=== PATIENT | female | born 1970 | race Caucasian/White ===

== ENCOUNTER 2022-04-07 09:55 | Day surgery (SDC) | payer BC ==
[~2022-04-07] VITALS: Ht 167.6 cm; Wt 106.8 kg
[~2022-04-07 09:55] MED LIST: EFFEXOR XR75 MG PO; IBU800 MG PO; PERCOCET 5-3251 EACH PO
--- NOTE | 2022-04-07 14:19 | NUR ---
04/07/22 1419 Sheets,Abby 1413 PT ARRIVED TO PACU ON 6L VIA MASK, PT ASLEEP AND RESP EVEN AND UNLABORED WITH ORAL AIRWAY IN PLACE. PT NONAROUSABLE.
--- NOTE | 2022-04-07 15:06 | NUR ---
1445: PATIENT BACK IN DAY SURGERY ROOM FROM PACU. RATES PAIN 2/10. ABDOMINAL SITES WITH STERI STRIPS WITH SCANT AMOUNT OF RED DRAINAGE. SCDs ON. IV SITE WNL. WOODALL CATH IN PLACE. VS CHECKED. ICE WATER PLACED AT BEDSIDE. AT BEDSIDE. CALL LIGHT WITHIN REACH. WARM BLANKET GIVEN. 1503: DR. VARNER IN TO SPEAK WITH AND PATIENT.
--- NOTE | 2022-04-07 15:13 | NUR ---
PATIENT AWAKENED FOR WOODALL CATH REMOVAL. PATIENT TOLERATED WOODALL REMOVAL WELL. NO NEEDS AT THIS TIME. AT BEDSIDE. CALL LIGHT WITHIN REACH.
--- NOTE | 2022-04-07 16:30 | NUR ---
1545: PATIENT TOLERATED WATER AND CRACKERS. VS CHECKED. NO OTHER NEEDS AT THIS TIME. AT BEDSIDE. CALL LIGHT WITHIN REACH. 1630: PATIENT ASSISTED OOB AND TO BATHROOM. GAIT STEADY.
[2022-04-07] MEDS ORDERED: HYDROCODON-ACE1 EA10 PO (16:38)
[2022-04-07] MEDS ORDERED: IBUPROFEN800 MG PO (16:38)
--- NOTE | 2022-04-07 16:48 | NUR ---
1635: VOIDED WITHOUT DIFFICULTY. GAIT STEADY BACK TO ROOM. PATIENT GETTING DRESSED.
--- NOTE | 2022-04-07 17:03 | NUR ---
PT GIVEN DISCHARGE INSTRUCTIONS. NO QUESTIONS FROM PT. PT MEETS CRITERIA FOR DISCHARGE. PT REPORTS NO PAIN. PT TRANSPORTED OUT OF DAY SURGERY VIA WHEELCHAIR TO PERSONAL AUTOMOBILE.
--- NOTE | 2022-04-11 05:22 | OR ---
[facility] [address] [place], [place] [address] Signed DATE OF OPERATION: 04/07/2022 SURGEON: Samir Dodson DO THERMAL ENGINEER: JESSICA Ayala DO PROCEDURES: 1. Laparoscopic right oophorectomy. 2. Pelvic washings. 3. Omental biopsy. 4. Peritoneal biopsy. 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 Peritoneal surface with bilateral brown blebs at each apex of cuff closure, each 2mm diameter. Scarring of peritoneal surface at region of left adnexa, consistent with surgical history. Otherwise smooth, normal appearing peritoneum. Right ovary appears normal without cystic lesions or masses visible. Bilateral ureters easily visualized in normal anatomic position. INDICATION: Pt is a 52 yo female with history of TLH-BS-LO, cysto for AUB and left ovarian mass. Electronically Signed By: SAMIR DODSON DO 04/11/22 0522 PATIENT NAME: CARLINE CHÁVEZ OPERATIVE REPORT DATE OF : 70 REPORT #: [id number] PHYSICIAN: SAMIR DODSON DO PCP: AVRIL WILSON PAC REPORT IS CONFIDENTIAL AND NOT TO BE RELEASED WITHOUT AUTHORIZATION [facility] [address] [place], [place] [address] Signed Left ovarian pathology was significant for borderline serous adenoma. Pt was referred to [facility] for further recommentations regarding management of borderline tumor and recommended completing surgery with right oophorectomy, and peritoneal and omental biopsies. Closer surveillance was recommended in the interim. Risks of surgical menopause were discussed. As pt followed-up, she noted her hot flashes were less bothersome postop compared with preop, and she felt ready to pursue definitive surgical management. Risks, benefits, and alternatives were discussed including my low-volume experience with peritoneal and omental biopsies and completion of procedure with [facility] was offered. Pt strongly desired to complete procedure locally, with me. Consents were signed and she elected to proceed. PROCEDURE: Pt was taken back to the operating room where she was given 2g Ancef IV and heparin subcutaneously. She was placed under general anesthesia and was positioned in dorsal lithotomy. She was prepped and draped in the normal sterile fashion. EEA sizer was placed vaginally in case manipulation of the cuff was necessary. Surgeon's gloves were changed and attention was turned to the abdomen. Local anesthetic was injected infraumbilically. Incision was made with the scalpel through prior scar and was carried down to the fascia with blunt and sharp dissection with metzenbaum scissors. Once fascia was incised, superior and inferior margins were each tagged with a stay suture of 0 vicryl. Peritoneum was entered bluntly and Cardona trochar was placed without difficulty. Abdomen was insufflated with CO2 gas and pneumoperitoneum was achieved. Local anesthetic was injected in the left and right lower quadrants, where 5mm incision were made with scalpel under direct visualization, and 5mm trochar was inserted through each under direct visualization without complication. Sterile saline was then instilled through suction/ purse seining hand and pelvic washings were collected. Omentum was carefully surveyed and monitored as patient was placed in trendelenburg and noted to be normal in appearance. Peritoneum was examined with two blebs as noted above and normal appearing right ovary, with excellent visualization of both ureters. Left peritoneal bleb was grasped with laparoscopic [place] graspers, elevated, and excised sharply using laparoscopic scissors. LigaSure device was used to cauterize bleeding after biopsy, along with monopolar spatula to achieve hemostasis. On the opposite side, right bleb was similarly grasped and elevated and excised with laparoscopic scissors, this time with abrupt bleeding. Biopsy site was cauterized with LigaSure, with hemostasis achieved after several attempts. Attention was then turned to the right ovary. Right IP ligament was well-developed and well visualized. Peritoneum was entered sharply with LigaSure lateral to the ovary then dissected posterior/ medially. IP ligament was cauterized and cut with LigaSure, and EndoLoop was used in addition to suture-ligate the IP ligament. Right ovary was placed in EndoCatch bag and removed from the abdomen through the umbilical incision, after which trochar was replaced without difficulty. Electronically Signed By: SAMIR DODSON DO 04/11/22 0522 PATIENT NAME: CARLINE CHÁVEZ OPERATIVE REPORT DATE OF : 70 REPORT #: [id number] PHYSICIAN: SAMIR DODSON DO PCP: AVRIL WILSON PAC REPORT IS CONFIDENTIAL AND NOT TO BE RELEASED WITHOUT AUTHORIZATION [address] [address] Signed Excellent hemostasis was noted. Peritoneal biopsy sites were reinspected with hemostasis noted. Omentum was grasped, elevated, and biopsy of random normal-appearing site was obtained using LigaSure device. Tisseal was applied over all biopsy sites and right IP pedicle with excellent hemostasis. Sites were monitored as pneumoperitoneum was desufflated and hemostasis persisted. Fascia was closed with 0 vicryl in a running fashion, and skin was closed with 4-0 monocryl. Crespo catheter was removed and cystoscope introduced into the bladder. Air bubble was visualized in the dome, which was noted to be intact and free of injury. Bilateral ureteral jets were visualized. All instrumentation was removed, crespo catheter was replaced, and sponge and instrument counts were correct. Pt was taken to recovery in stable and satisfactory condition. Samir Dodson DO EMZ/MODL /[id number] Copies: ~ Electronically Signed By: SAMIR DODSON DO 04/11/22 0522 PATIENT NAME: CARLINE CHÁVEZ OPERATIVE REPORT DATE OF : 70 REPORT #: [id number] PHYSICIAN: SAMIR DODSON DO PCP: AVRIL WILSON PAC REPORT IS CONFIDENTIAL AND NOT TO BE RELEASED WITHOUT AUTHORIZATION
--- NOTE | 2022-04-12 14:36 | PATH ---
[facility] [address] [place], [place] [address] Signed SPECIMEN(S): A LEFT PERITONEAL BIOPSY SPECIMEN(S): B RIGHT PELVIC PERITONEAL BIOPSY SPECIMEN(S): C RIGHT OVARY SPECIMEN(S): D OMENTAL BIOPSY SPECIMEN SOURCE: A. LEFT PERITONEAL BIOPSY B. RIGHT PELVIC PERITONEAL BIOPSY C. RIGHT OVARY D. OMENTAL BIOPSY CLINICAL HISTORY: Serous cystadenoma of left ovary with borderline malignant features. FINAL PATHOLOGIC DIAGNOSIS: A. Left peritoneal biopsy: - Fibrovascular and adipose tissue with focal reactive features and slight mixed inflammation. - Negative for atypical features or malignancy. B. Right pelvic peritoneal biopsy: - Fibrovascular and adipose tissue with focal reactive features and slight mixed inflammation. - Negative for atypical features or malignancy. C. Right ovary: - Benign ovary with incidental hemorrhagic corpus luteum. - Negative for atypical features or evidence of malignancy. D. Omental biopsy: - Benign adipose and scant fibrovascular tissue, consistent with clinical omentum. - Negative for atypical features or evidence of malignancy. COMMENT: The corresponding cytology ([id number], Negative for malignancy) is reviewed. JVR:sindyh:[id number] MICROSCOPIC EXAMINATION: Histologic sections of all submitted blocks are examined by light microscopy. These findings, together with the gross examination, support the pathologic diagnosis. Immunostains are performed with appropriate controls and show the following: Block (A1): PATIENT NAME: CARLINE CHÁVEZ PATHOLOGY DATE OF : 70 REPORT #: [id number] PHYSICIAN: JENNIFER PATHOLOGY PCP: AVRIL WILSON PAC REPORT IS CONFIDENTIAL AND NOT TO BE RELEASED WITHOUT AUTHORIZATION [facility] [address] [place], [place] [address] Signed - CD68: Positive in scattered cells of concern. - Andrey-EP4: Negative in area of concern. - MOC-31: Negative in area of concern. - Calretinin: Positive in focal scattered cells. Block (B1): - CD68: Positive in scattered cells of concern. - Andrey-EP4: Negative in area of concern. - MOC-31: Negative in area of concern. - Calretinin: Positive in focal scattered cells. JVR:[facility] GROSS DESCRIPTION: A. The specimen, labeled and designated "Chávez, left peritoneal biopsy," is received in formalin and consists of one pink-noel soft tissue fragment that measures 0.6 x 0.4 x 0.3 cm. Specimen is bisected and entirely submitted in (A1). B. The specimen, labeled and designated "Chávez, right pelvic peritoneal biopsy," is received in formalin and consists of pink-noel, irregular shaped soft tissue fragment that measures 0.8 x 0.4 x 0.2 cm. Specimen is bisected and entirely in (B1). C. The specimen, labeled and designated "Chávez, right ovary," is received in formalin and consists of right ovary that measures 4.5 x 1.7 x 1.7 cm. The serosal surface is pink-noel, smooth with areas of folds. Sectioning through the ovary reveals a cyst that measures 1.5 cm in greatest dimension. The cyst is empty. The inner surface of the cyst is smooth. No papillary excrescences are grossly identified. The remaining tissue is pink-noel, homogenous. Warehouse Helper sections are submitted in (C1-C3). D. The specimen, labeled and designated "Chávez, omental biopsy," is received in formalin and consists of two yellow-noel, irregular shaped fibroadipose tissue fragments that aggregate measure 1.2 x 1.2 x 0.3 cm. Sectioning through the specimen reveals yellow-noel and focally congested fibroadipose tissue. Entirely submitted in (D1). JS (under the direct supervision of a pathologist) The Gross Description was prepared using a voice recognition system. The report was reviewed for accuracy; however, sound-alike word errors, addition and/or deletions may occur. If there is any question about this report, please contact Client Services. ADDITIONAL NOTES: Immunohistochemical and/or in situ hybridization studies were performed on this PATIENT NAME: CARLINE CHÁVEZ PATHOLOGY DATE OF : 70 REPORT #: [id number] PHYSICIAN: JENNIFER SANTACRUZ PCP: AVRIL WILSON PAC REPORT IS CONFIDENTIAL AND NOT TO BE RELEASED WITHOUT AUTHORIZATION [address] [address] Signed case with the appropriate positive controls that react as expected. This test was developed and its performance characteristics determined by [facility] It has not been cleared or approved by the U.S. Food and Drug Administration. The FDA has determined that such clearance or approval is not necessary. This test is used for clinical purposes. It should not be regarded as investigational or for research. [facility] is certified under the Clinical Laboratory Improvement Amendments of 1988 (CLIA) as qualified to perform high complexity clinical laboratory testing. This assay has not been validated for specimens that have been decalcified. PERFORMING LABORATORY: The technical component was performed by [facility], [address] [place] [id number] (CLIA# [id number]). Professional interpretation was performed by [facility], [address] [place] [id number] (CLIA#: [id number]). Diagnostician: Humza Tellez MD Pathologist Electronically Signed 04/12/2022 Copies: ~ PATIENT NAME: CARLINE CHÁVEZ PATHOLOGY DATE OF : 70 REPORT #: [id number] PHYSICIAN: JENNIFER SANTACRUZ PCP: AVRIL WILSON PAC REPORT IS CONFIDENTIAL AND NOT TO BE RELEASED WITHOUT AUTHORIZATION
== END 2022-04-07 16:58 | disposition home or self-care (01) ==
LOC: DS 09:55 → OPS 09:55 → EDSTATUS 10:30 → MS 10:30 → OPS 11:30
PROVIDERS: ATTEND Obstetrics & Gynecology
PROC: 0DBW4ZX Excision of Peritoneum, Percutaneous Endoscopic Approach, Diagnostic (ICD-10-PCS; 2022-04-07)
PROC: 0UB04ZZ Excision of Right Ovary, Percutaneous Endoscopic Approach (ICD-10-PCS; principal; 2022-04-07 11:30)
PROC: 0DBU4ZX Excision of Omentum, Percutaneous Endoscopic Approach, Diagnostic (ICD-10-PCS; 2022-04-07 11:30)
DX: N83.11 Corpus luteum cyst of right ovary (principal); Z78.0 Asymptomatic menopausal state; E66.9 Obesity, unspecified; Z68.41 Body mass index [BMI] 40.0-44.9, adult
CPT/HCPCS: J0131; J0690; J1100; J1644; J1885; J2001; J2405; J2704; J3010; J7121